=== PATIENT | female | born 1960 | race Caucasian/White ===

== ENCOUNTER 2022-02-05 18:50 | Inpatient (IN) ==
[2022-02-05] MEDS ORDERED: Naloxone 0.4 MG/ML INJ IVP PRN (22:42)
[2022-02-05] MEDS ORDERED: Melatonin 3 MG TABLET PO PRN (22:42)
[2022-02-05] MEDS ORDERED: Perflutren Lipid Microsphere 1.3 ML in 0.9 % Sodium Chloride 8.7 ML IVP PRN (22:48)
[2022-02-05] MEDS: Furosemide 20 MG/2 ML VIAL IVP SCH (23:23)
[2022-02-06 00:46] LABS: Adenovirus Not Detected (Not Detect); Coronavirus 229E Not Detected (Not Detect); Coronavirus HKU1 Not Detected (Not Detect); Coronavirus NL63 Not Detected (Not Detect); Coronavirus OC43 Not Detected (Not Detect); Human Metapneumovirus Not Detected (Not Detect); Human Rhinovirus/Enterovirus Not Detected (Not Detect); SARS-CoV-2 Not Detected (Not Detect)
[2022-02-06 00:47] LABS: Bordetella Pertussis Not Detected (Not Detect); Chlamydophila pneumoniae Not Detected (Not Detect); Influenza A Subtype 2009 H1 Not Detected (Not Detect); Influenza B Not Detected (Not Detect); Mycoplasma pneumoniae Not Detected (Not Detect); Parainfluenza Virus 1 Not Detected (Not Detect); Parainfluenza Virus 2 Not Detected (Not Detect); Parainfluenza Virus 3 Not Detected (Not Detect); Parainfluenza Virus 4 Not Detected (Not Detect); Respiratory Syncytial Virus Not Detected (Not Detect)
[2022-02-06 02:44] LABS: Alanine Aminotransferase 24 Units/L (7-52); Albumin 3.5 g/dL (3.5-5.7); Albumin/Globulin Ratio 1.1 (1.1-2.2); Alkaline Phosphatase 58 Units/L (34-104); Aspartate Amino Transferase 37 Units/L (13-39); BUN/Creatinine Ratio 27 (6-26); Bilirubin,Total 0.3 mg/dL (0.3-1.0); Blood Urea Nitrogen 20 mg/dL (8-23); Calcium 8.3 mg/dL (8.6-10.3); Carbon Dioxide 20 mEq/L (23-29); Chloride 99 mEq/L (98-107); Globulin 3.1 g/dL (2.4-3.5); Glucose 183 mg/dL (70-105); Magnesium 1.6 mg/dL (1.6-2.6); Osmolality,Calculated 281 (280-300); Phosphorous 4.4 mg/dL (2.7-4.5); Potassium 4.3 mEq/L (3.5-5.1); Sodium 132 mEq/L (136-145); Total Protein 6.6 g/dL (6.4-8.9); eGFR For African Americans > 60 (> 60); eGFR For Non-African Americans > 60 (> 60)
[2022-02-06] MEDS: Ipratropium/Albuterol Neb 3 ML IH SCH ×3 (04:21→15:16)
[2022-02-06 05:39] LABS: Basophils # 0.1 K/mcL (0.0-0.2); Basophils % 0.3 %; Eosinophils # 0.1 K/mcL (0.0-0.6); Eosinophils % 0.5 %; Hematocrit 50.3 % (35.3-44.9); Hemoglobin 16.2 g/dL (11.5-15.4); Immature Granulocytes % 2.1 % (0-4); Lymphocytes # 0.8 K/mcL (0.6-4.6); Lymphocytes % 3.9 %; Mean Corpuscular HGB Conc 32.2 g/dL (31.6-35.5); Mean Corpuscular Hemoglobin 32.1 pg (28.0-33.3); Mean Platelet Volume 10.7 fL (9.4-12.4); Monocytes # 1.4 K/mcL (0.0-1.3); Monocytes % 6.8 %; Platelet Count 393 K/mcL (140-400); Red Blood Count 5.04 M/mcL (3.82-4.97); Red Cell Distribution Width 14.4 % (11.5-14.5); Segmented Neutrophils % 86.4 %; White Blood Count 20.8 K/mcL (4.3-11.1)
[2022-02-06 05:45] LABS: Mean Corpuscular Volume 99.8 fL (83.0-100.0)
[2022-02-06] MEDS ORDERED: *HR* Heparin 5,000 UNIT/ML VIAL SQ SCH (06:00)
[2022-02-06 06:24] LABS: Platelet Estimate Normal (Normal)
[2022-02-06] MEDS ORDERED: MethylPREDNISolone 40 MG/ML VIAL IVP SCH (08:00)
[2022-02-06] MEDS: Furosemide 20 MG/2 ML VIAL IVP SCH (08:13)
[2022-02-06] MEDS ORDERED: Budesonide/Formoterol 160/4.5 1 PUFF INH IH SCH (10:00)
[2022-02-06 10:29] VITALS: BP 147/78; PULSE 98; TEMP 98.2
[2022-02-06 13:44] VITALS: O2SAT 92
[2022-02-06] MEDS ORDERED: Azithromycin 500 MG in 0.9 % Sodium Chloride 250 ML IVPB SCH (18:00)
[2022-02-06] MEDS ORDERED: cefTRIAXone 1,000 MG in 0.9 % Sodium Chloride Mini Bag 100 ML IVPB SCH (18:00)
== END 2022-02-06 16:46 | disposition home or self-care (01) | DRG 139 ==
LOC: 2NENU → MERGE 22:42
PROVIDERS: ADMIT Internal Medicine; ATTEND Internal Medicine

== ENCOUNTER 2022-06-15 18:33 | Inpatient (IN) ==
[2022-06-15] MEDS ORDERED: methylPREDNISolone 125 MG/2 ML VIAL IVP ONE (19:12)
[2022-06-15] MEDS ORDERED: Ipratropium/Albuterol Neb 3 ML IH ONE (19:12)
[2022-06-15] MEDS ORDERED: Albuterol Neb 1.25 MG/3 ML VIAL ONE (19:31)
[2022-06-15 19:37] LABS: Basophils # 0.1 K/mcL (0.0-0.2); Basophils % 1.2 %; Eosinophils # 0.3 K/mcL (0.0-0.6); Eosinophils % 2.7 %; Hematocrit 51.7 % (35.3-44.9); Hemoglobin 16.1 g/dL (11.5-15.4); Immature Granulocytes % 0.3 % (0-4); Lymphocytes # 1.4 K/mcL (0.6-4.6); Lymphocytes % 12.7 %; Mean Corpuscular HGB Conc 31.1 g/dL (31.6-35.5); Mean Corpuscular Hemoglobin 30.7 pg (28.0-33.3); Mean Corpuscular Volume 98.7 fL (83.0-100.0); Mean Platelet Volume 10.7 fL (9.4-12.4); Monocytes # 0.9 K/mcL (0.0-1.3); Monocytes % 8.2 %; Neutrophils # 8.5 K/mcL (1.6-8.9); Platelet Count 651 K/mcL (140-400); Red Blood Count 5.24 M/mcL (3.82-4.97); Red Cell Distribution Width 13.6 % (11.5-14.5); Segmented Neutrophils % 74.9 %; White Blood Count 11.3 K/mcL (4.3-11.1)
[2022-06-15] MEDS ORDERED: Albuterol 2.5 MG/3 ML NEBULIZER ONE (19:37)
[2022-06-15] MEDS: Albuterol 2.5 MG/3 ML NEBULIZER IH ONE ×2 (19:39→20:15)
[2022-06-15 20:05] LABS: Albumin 3.9 g/dL (3.5-5.7); Albumin/Globulin Ratio 1.4 (1.1-2.2); Bilirubin,Total 0.5 mg/dL (0.3-1.0); Calcium 8.9 mg/dL (8.6-10.3); Globulin 2.8 g/dL (2.4-3.5); Total Protein 6.7 g/dL (6.4-8.9); Troponin I 0.04 ng/mL (< 0.04)
[2022-06-15 20:13] LABS: ABG Base Excess 1 mEq/L (-2 to 3); ABG HCO3 33 mEq/L (21-27); ABG Oxygen Saturation 53 % (95-98); ABG PCO2 83 mmHg (35-45); ABG PH 7.21 pH Units (7.32-7.45); ABG PO2 36 mmHg (85-104); ABG TCO2 35 mEq/L (20-26)
[2022-06-15] MEDS ORDERED: Azithromycin 250 MG TABLET PO ONE (20:21)
[2022-06-15] MEDS ORDERED: cefTRIAXone 1,000 MG in Water for inj. (sterile) 10 ML IVP ONE (20:21)
[2022-06-15] MEDS ORDERED: Furosemide 40 MG/4 ML VIAL IVP ONE (21:04)
[2022-06-15] MEDS ORDERED: *HR* LORazepam 0.5 MG TABLET PO ONE (21:05)
[2022-06-15 21:30] LABS: Adenovirus Not Detected (Not Detect); Bordetella Pertussis Not Detected (Not Detect); Chlamydophila pneumoniae Not Detected (Not Detect); Coronavirus 229E Not Detected (Not Detect); Coronavirus HKU1 Not Detected (Not Detect); Coronavirus NL63 Not Detected (Not Detect); Coronavirus OC43 Not Detected (Not Detect); Human Metapneumovirus Not Detected (Not Detect); Human Rhinovirus/Enterovirus Not Detected (Not Detect); Influenza A Subtype 2009 H1 Not Detected (Not Detect); Influenza B Not Detected (Not Detect); Mycoplasma pneumoniae Not Detected (Not Detect); Parainfluenza Virus 1 Not Detected (Not Detect); Parainfluenza Virus 2 Not Detected (Not Detect); Parainfluenza Virus 3 Not Detected (Not Detect); Parainfluenza Virus 4 Not Detected (Not Detect); Respiratory Syncytial Virus Not Detected (Not Detect); SARS-CoV-2 Not Detected (Not Detect)
[2022-06-15] MEDS ORDERED: Naloxone 0.4 MG/ML INJ IVP PRN (21:46)
[2022-06-15] MEDS ORDERED: Ondansetron ODT 4 MG TAB.RAPDIS SL PRN (21:46)
[2022-06-15] MEDS ORDERED: Melatonin 3 MG TABLET PO PRN (21:46)
[2022-06-15] MEDS: Budesonide/Formoterol 160/4.5 1 PUFF INH IH SCH (22:20)
[2022-06-15 23:19] LABS: ABG Base Excess 2 mEq/L (-2 to 3); ABG HCO3 34 mEq/L (21-27); ABG Oxygen Saturation 97 % (95-98); ABG PCO2 85 mmHg (35-45); ABG PH 7.21 pH Units (7.32-7.45); ABG PO2 118 mmHg (85-104); ABG TCO2 37 mEq/L (20-26)
[2022-06-16] MEDS: Ipratropium/Albuterol Neb 3 ML IH SCH ×4 (04:32→21:23)
[2022-06-16] MEDS: *HR* Heparin 5,000 UNIT/ML VIAL SQ SCH ×2 (05:56→16:34)
[2022-06-16 06:10] LABS: Basophils # 0.1 K/mcL (0.0-0.2); Basophils % 0.6 %; Hematocrit 52.9 % (35.3-44.9); Hemoglobin 16.4 g/dL (11.5-15.4); Immature Granulocytes % 0.4 % (0-4); Lymphocytes # 0.3 K/mcL (0.6-4.6); Lymphocytes % 4.2 %; Mean Corpuscular Hemoglobin 30.9 pg (28.0-33.3); Mean Corpuscular Volume 99.8 fL (83.0-100.0); Mean Platelet Volume 10.4 fL (9.4-12.4); Monocytes # 0.1 K/mcL (0.0-1.3); Monocytes % 1.1 %; Neutrophils # 7.7 K/mcL (1.6-8.9); Platelet Count 470 K/mcL (140-400); Red Cell Distribution Width 13.5 % (11.5-14.5); Segmented Neutrophils % 93.7 %; White Blood Count 8.2 K/mcL (4.3-11.1)
[2022-06-16 06:36] LABS: Calcium 8.7 mg/dL (8.6-10.3); Magnesium 1.4 mg/dL (1.6-2.6); Phosphorous 5.3 mg/dL (2.7-4.5); Potassium 4.1 mEq/L (3.5-5.1)
[2022-06-16 06:43] LABS: Troponin I 0.03 ng/mL (< 0.04)
[2022-06-16] MEDS ORDERED: Saline Nasal Spray 44 ML BOTTLE NS PRN (09:04)
[2022-06-16] MEDS: MethylPREDNISolone 40 MG/ML VIAL IVP SCH ×3 (09:07→23:29)
[2022-06-16] MEDS: carvediloL 6.25 MG TABLET PO SCH ×2 (09:07→16:25)
[2022-06-16] MEDS: Furosemide 20 MG/2 ML VIAL IVP SCH ×2 (09:11→20:39)
[2022-06-16] MEDS: Budesonide/Formoterol 160/4.5 1 PUFF INH IH SCH ×2 (10:49→21:23)
[2022-06-16 11:40] LABS: ABG Base Excess 7 mEq/L (-2 to 3); ABG HCO3 38 mEq/L (21-27); ABG Oxygen Saturation 90 % (95-98); ABG PCO2 79 mmHg (35-45); ABG PH 7.28 pH Units (7.32-7.45); ABG PO2 70 mmHg (85-104); ABG TCO2 40 mEq/L (20-26)
[2022-06-16] MEDS: *HR* LORazepam 0.5 MG TABLET PO PRN (16:48)
[2022-06-16] MEDS ORDERED: cefTRIAXone 1,000 MG in 0.9 % Sodium Chloride 10 ML IVP SCH (20:00)
[2022-06-16] MEDS ORDERED: Azithromycin 500 MG in 0.9 % Sodium Chloride 250 ML IVPB SCH (20:00)
[2022-06-17] MEDS: *HR* LORazepam 0.5 MG TABLET PO PRN ×2 (02:02→23:25)
[2022-06-17 03:42] LABS: Basophils % 0.1 %; Eosinophils % 0.1 %; Hematocrit 51.1 % (35.3-44.9); Hemoglobin 15.8 g/dL (11.5-15.4); Immature Granulocytes % 0.4 % (0-4); Lymphocytes # 0.4 K/mcL (0.6-4.6); Lymphocytes % 2.5 %; Mean Corpuscular HGB Conc 30.9 g/dL (31.6-35.5); Mean Corpuscular Hemoglobin 30.8 pg (28.0-33.3); Mean Corpuscular Volume 99.6 fL (83.0-100.0); Mean Platelet Volume 10.7 fL (9.4-12.4); Monocytes # 0.4 K/mcL (0.0-1.3); Monocytes % 2.6 %; Neutrophils # 14.7 K/mcL (1.6-8.9); Platelet Count 602 K/mcL (140-400); Red Blood Count 5.13 M/mcL (3.82-4.97); Red Cell Distribution Width 13.5 % (11.5-14.5); Segmented Neutrophils % 94.3 %
[2022-06-17 03:43] LABS: White Blood Count 15.6 K/mcL (4.3-11.1)
[2022-06-17] MEDS: Ipratropium/Albuterol Neb 3 ML IH SCH ×4 (04:19→22:34)
[2022-06-17] MEDS: *HR* Heparin 5,000 UNIT/ML VIAL SQ SCH ×2 (05:24→16:13)
[2022-06-17 06:37] LABS: Calcium 9.3 mg/dL (8.6-10.3); Magnesium 1.6 mg/dL (1.6-2.6); Phosphorous 4.9 mg/dL (2.7-4.5); Potassium 4.6 mEq/L (3.5-5.1)
[2022-06-17] MEDS: carvediloL 6.25 MG TABLET PO SCH ×2 (08:13→16:10)
[2022-06-17] MEDS: Azithromycin 250 MG TABLET PO SCH (08:13)
[2022-06-17] MEDS: Furosemide 20 MG/2 ML VIAL IVP SCH ×2 (08:15→16:13)
[2022-06-17] MEDS: MethylPREDNISolone 40 MG/ML VIAL IVP SCH ×3 (08:15→23:25)
[2022-06-17] MEDS: Budesonide/Formoterol 160/4.5 1 PUFF INH IH SCH ×2 (10:02→22:34)
[2022-06-17] MEDS: Ibuprofen 400 MG TABLET PO PRN (16:09)
[2022-06-17 17:29] LABS: RBC,Pleural Fluid < 2000 RBC/mcL
[2022-06-17 18:00] LABS: Total Protein,Pleural Fluid 2.4 g/dL
[2022-06-17 21:06] LABS: Appearance of Pleural Fl Hazy (Clear)
[2022-06-18 01:33] LABS: Hematocrit 49.9 % (35.3-44.9); Hemoglobin 15.8 g/dL (11.5-15.4); Immature Platelets 9.3 % (1.1-6.1); Mean Corpuscular HGB Conc 31.7 g/dL (31.6-35.5); Mean Corpuscular Hemoglobin 30.9 pg (28.0-33.3); Mean Corpuscular Volume 97.5 fL (83.0-100.0); Mean Platelet Volume 10.6 fL (9.4-12.4); Platelet Count 544 K/mcL (140-400); Red Blood Count 5.12 M/mcL (3.82-4.97); Red Cell Distribution Width 13.5 % (11.5-14.5); White Blood Count 16.8 K/mcL (4.3-11.1)
[2022-06-18 02:29] LABS: Eosinophils # 0.3 K/mcL (0.0-0.6); Monocytes # 0.3 K/mcL (0.0-1.3); Neutrophils # 15.1 K/mcL (1.6-8.9)
[2022-06-18 02:36] LABS: Calcium 8.7 mg/dL (8.6-10.3); Magnesium 1.5 mg/dL (1.6-2.6); Phosphorous 4.2 mg/dL (2.7-4.5); Potassium 4.5 mEq/L (3.5-5.1)
[2022-06-18] MEDS: Ipratropium/Albuterol Neb 3 ML IH SCH (03:49)
[2022-06-18] MEDS: *HR* Heparin 5,000 UNIT/ML VIAL SQ SCH ×2 (05:06→17:16)
[2022-06-18] MEDS: carvediloL 6.25 MG TABLET PO SCH ×2 (08:02→17:16)
[2022-06-18] MEDS: Azithromycin 250 MG TABLET PO SCH (08:03)
[2022-06-18] MEDS: Furosemide 20 MG/2 ML VIAL IVP SCH ×2 (08:04→17:17)
[2022-06-18] MEDS: MethylPREDNISolone 40 MG/ML VIAL IVP SCH ×3 (08:04→23:48)
[2022-06-18] MEDS ORDERED: Budesonide/Formoterol 160/4.5 1 PUFF INH IH PRN (09:30)
[2022-06-18] MEDS ORDERED: Ipratropium/Albuterol Neb 3 ML IH PRN (09:30)
[2022-06-18] MEDS: *HR* LORazepam 0.5 MG TABLET PO PRN (20:09)
[2022-06-18] MEDS: Budesonide/Formoterol 160/4.5 1 PUFF INH IH SCH (22:49)
[2022-06-19 03:08] LABS: Basophils % 0.1 %; Hematocrit 50.5 % (35.3-44.9); Hemoglobin 15.7 g/dL (11.5-15.4); Immature Granulocytes % 0.8 % (0-4); Lymphocytes # 0.3 K/mcL (0.6-4.6); Lymphocytes % 2.1 %; Mean Corpuscular HGB Conc 31.1 g/dL (31.6-35.5); Mean Corpuscular Hemoglobin 30.6 pg (28.0-33.3); Mean Corpuscular Volume 98.4 fL (83.0-100.0); Mean Platelet Volume 10.7 fL (9.4-12.4); Monocytes # 0.6 K/mcL (0.0-1.3); Monocytes % 3.8 %; Neutrophils # 14.4 K/mcL (1.6-8.9); Platelet Count 517 K/mcL (140-400); Red Blood Count 5.13 M/mcL (3.82-4.97); Red Cell Distribution Width 13.4 % (11.5-14.5); Segmented Neutrophils % 93.2 %; White Blood Count 15.5 K/mcL (4.3-11.1)
[2022-06-19 03:34] LABS: Magnesium 1.7 mg/dL (1.6-2.6); Phosphorous 2.8 mg/dL (2.7-4.5); Potassium 4.2 mEq/L (3.5-5.1)
[2022-06-19] MEDS: *HR* Heparin 5,000 UNIT/ML VIAL SQ SCH ×2 (06:19→17:58)
[2022-06-19] MEDS: Budesonide/Formoterol 160/4.5 1 PUFF INH IH SCH ×2 (07:41→20:47)
[2022-06-19] MEDS: carvediloL 6.25 MG TABLET PO SCH ×2 (09:21→16:32)
[2022-06-19] MEDS: Furosemide 20 MG/2 ML VIAL IVP SCH (09:22)
[2022-06-19] MEDS: MethylPREDNISolone 40 MG/ML VIAL IVP SCH ×3 (09:23→20:53)
[2022-06-19] MEDS: Azithromycin 250 MG TABLET PO SCH (09:23)
[2022-06-19] MEDS ORDERED: *HR* Labetalol 20 MG/4 ML SYRINGE IVP ONE (17:42)
[2022-06-19] MEDS: amLODIPine 5 MG TABLET PO SCH (19:24)
[2022-06-19] MEDS: *HR* LORazepam 0.5 MG TABLET PO PRN (22:55)
[2022-06-19] MEDS: Ibuprofen 400 MG TABLET PO PRN (22:55)
[2022-06-19] MEDS ORDERED: Furosemide 20 MG/2 ML VIAL IVP ONE (23:36)
[2022-06-20] MEDS ORDERED: *HR* Labetalol 20 MG/4 ML SYRINGE IVP ONE (00:25)
[2022-06-20 03:01] LABS: Basophils % 0.1 %; Hemoglobin 16.4 g/dL (11.5-15.4); Lymphocytes # 0.3 K/mcL (0.6-4.6); Lymphocytes % 2.2 %; Mean Corpuscular HGB Conc 31.5 g/dL (31.6-35.5); Mean Corpuscular Hemoglobin 30.7 pg (28.0-33.3); Mean Corpuscular Volume 97.2 fL (83.0-100.0); Mean Platelet Volume 10.5 fL (9.4-12.4); Monocytes # 0.7 K/mcL (0.0-1.3); Monocytes % 4.4 %; Neutrophils # 13.9 K/mcL (1.6-8.9); Platelet Count 553 K/mcL (140-400); Red Blood Count 5.35 M/mcL (3.82-4.97); Red Cell Distribution Width 13.4 % (11.5-14.5); Segmented Neutrophils % 92.3 %; White Blood Count 15.1 K/mcL (4.3-11.1)
[2022-06-20 03:41] LABS: BUN/Creatinine Ratio 41 (6-26); Blood Urea Nitrogen 28 mg/dL (8-23); Carbon Dioxide 43 mEq/L (23-29); Chloride 88 mEq/L (98-107); Glucose 182 mg/dL (70-105); Osmolality,Calculated 300 (280-300); Potassium 3.9 mEq/L (3.5-5.1); Sodium 140 mEq/L (136-145)
[2022-06-20] MEDS: *HR* Heparin 5,000 UNIT/ML VIAL SQ SCH ×2 (06:15→17:07)
[2022-06-20] MEDS: Budesonide/Formoterol 160/4.5 1 PUFF INH IH SCH ×2 (07:33→19:56)
[2022-06-20] MEDS: amLODIPine 5 MG TABLET PO SCH (07:42)
[2022-06-20] MEDS: carvediloL 25 MG TABLET PO SCH ×2 (07:42→17:08)
[2022-06-20] MEDS: Furosemide 20 MG/2 ML VIAL IVP SCH (07:42)
[2022-06-20] MEDS: MethylPREDNISolone 40 MG/ML VIAL IVP SCH (07:42)
[2022-06-20] MEDS: Azithromycin 250 MG TABLET PO SCH (07:43)
[2022-06-20] MEDS: lisinopriL 10 MG TABLET PO SCH (11:17)
[2022-06-20] MEDS: *HR* LORazepam 0.5 MG TABLET PO PRN (21:02)
[2022-06-21 05:34] LABS: Basophils % 0.1 %; Eosinophils # 0.1 K/mcL (0.0-0.6); Eosinophils % 0.6 %; Hematocrit 52.8 % (35.3-44.9); Hemoglobin 16.7 g/dL (11.5-15.4); Immature Granulocytes % 0.6 % (0-4); Lymphocytes # 1.2 K/mcL (0.6-4.6); Lymphocytes % 8.1 %; Mean Corpuscular HGB Conc 31.6 g/dL (31.6-35.5); Mean Corpuscular Hemoglobin 30.3 pg (28.0-33.3); Mean Corpuscular Volume 95.8 fL (83.0-100.0); Monocytes # 1.1 K/mcL (0.0-1.3); Monocytes % 7.5 %; Neutrophils # 11.8 K/mcL (1.6-8.9); Platelet Count 547 K/mcL (140-400); Red Blood Count 5.51 M/mcL (3.82-4.97); Red Cell Distribution Width 13.1 % (11.5-14.5); Segmented Neutrophils % 83.1 %; White Blood Count 14.2 K/mcL (4.3-11.1)
[2022-06-21] MEDS: *HR* Heparin 5,000 UNIT/ML VIAL SQ SCH (05:34)
[2022-06-21 06:44] LABS: BUN/Creatinine Ratio 43 (6-26); Blood Urea Nitrogen 26 mg/dL (8-23); Calcium 9.2 mg/dL (8.6-10.3); Carbon Dioxide 45 mEq/L (23-29); Chloride 88 mEq/L (98-107); Glucose 94 mg/dL (70-105); Osmolality,Calculated 295 (280-300); Potassium 3.7 mEq/L (3.5-5.1); Sodium 140 mEq/L (136-145)
[2022-06-21 07:16] VITALS: BP 170/109; PULSE 81; TEMP 98.2
[2022-06-21] MEDS: Budesonide/Formoterol 160/4.5 1 PUFF INH IH SCH (07:20)
[2022-06-21] MEDS: lisinopriL 10 MG TABLET PO SCH (08:00)
[2022-06-21] MEDS: Azithromycin 250 MG TABLET PO SCH (08:00)
[2022-06-21] MEDS: carvediloL 25 MG TABLET PO SCH (08:00)
[2022-06-21] MEDS: amLODIPine 5 MG TABLET PO SCH (08:00)
[2022-06-21] MEDS: Furosemide 20 MG/2 ML VIAL IVP SCH (08:01)
[2022-06-21 08:58] VITALS: O2SAT 95
[2022-06-21] MEDS ORDERED: predniSONE 20 MG TABLET PO SCH (09:00)
== END 2022-06-21 12:39 | disposition home or self-care (01) | DRG 140 ==
LOC: 3NENU 18:33 → EMEROOARM 18:33 → 3NENU 22:45
PROVIDERS: ADMIT Student in an Organized Health Care Education/Training Program; ATTEND Student in an Organized Health Care Education/Training Program